=== PATIENT | male | born 1995 | race Caucasian/White ===

== ENCOUNTER 2025-01-29 09:59 | Emergency (ER) | payer OTHER ==
[2025-01-29 10:41] LABS: Absolute Lymphocytes (CBC) 1.1 K/uL (0.7-4.9); Hematocrit 45.0 % (39.6-49.0); Hemoglobin 15.6 g/dL (13.6-17.9); MCH 31.6 pg (27.0-35.0); MCHC 34.7 g/dL (32.0-36.0); MCV 91.1 fL (80-100); MPV 9.9 fL (7.6-11.3); Nucleated RBC Absolute Count 0.0 (0-0); Nucleated Red Blood Cells % 0.1 % (0-0); RBC Red Blood Cell Count 4.94 M/uL (4.33-5.43); White Blood Count 9.70 thou/uL (4.3-10.9)
[2025-01-29 10:51] LABS: PT Prothrombin Time 12.9 SECONDS (10-13.0); PTT, Activated Partial Thromb 31.1 SECONDS (27.2-37.4); Protime INR 1.15
--- NOTE | 2025-01-29 11:14 | RAD REPORT ---
EXAM: CT Soft Tissue Neck W/Contr INDICATION: [facility] no attempted hanging Bed Name: 3 TECHNIQUE: Helical CT examination of the neck with IV contrast. Not reported Sagittal and coronal ref ormations were generated. This exam was performed according to our departmental dose-optimization program, which includes automated exposure control, adjustment of the mA and/or kV according to patie nt size and/or use of iterative reconstruction technique. COMPARISON: None. FINDINGS: Mucosal spaces: Nasopharynx, oropharynx, oral cavity, larynx and hypopharynx are normal. No suspiciou s masses. Epiglottis is normal in configuration. True vocal cords cords are normally situated. Piriform sinuses are well-aerated. Lymph Nodes: No pathologic appearing cervical lymph nodes. Salivary Glands: Unremarkable. Thyroid Gland: Normal Included Intracranial Structures: Normal Included Orbits: Normal Paranasal Sinuses: Moderate mucosal thickening predominantly along the left maxillary and sphenoid s inuses. Tympanomastoid Cavities: Normal Vascular Structures: Normal Osseous Structures: No acute osseous abnormality. Included Lung Apices: Normal IMPRESSION: No acute abnormalities of the neck soft tissues. Up to moderate inflammatory paranasal sinus mucosal thickening.
--- NOTE | 2025-01-29 11:15 | RAD REPORT ---
EXAM: C Spine Wo Con HISTORY: attempted hanging COMPARISON: None TECHNIQUE: Multiple contiguous axial images were obtained in a CT of the cervical spine without IV co ntrast. Sagittal and coronal reformats were performed. One or more of the following dose reduction techniques were used: Automated exposure control, adjustment of the mA and kV according to patient si ze, and iterative reconstruction. Unless otherwise specified, incidental findings do not require dedicated imaging follow-up. FINDINGS: The vertebral bodies and intervertebral discs demonstrate normal height and alignment without fractur e or subluxation. No degenerative changes are present. No prevertebral soft tissue swelling is seen. The posterior facets are well aligned. Normal alignment of the skull base with the cervical spine is seen. The lung apices are unremarkable. The cervical soft tissues are unremarkable. IMPRESSION: No evidence of acute osseous abnormality of the cervical spine.
[2025-01-29 11:22] LABS: METHAMPHETAM NEGATIVE (NEGATIVE); THC Cannibis NEGATIVE (NEGATIVE)
--- NOTE | 2025-01-29 11:28 | EDPHYS ---
Physician Documentation [facility] Name: Rodolfo Hollingsworth Age: 29 yrs Sex: Male : 1995 Arrival Date: 01/29/2025 Time: 09:59 Bed 3 Private MD: ED Physician Jeana Proctor HPI: 01/29 10:30 This 29 yrs old Male presents to ER via EMS with complaints of Suicidal Ideation, sp3 attempted hanging. 10:30 29-year-old male with history of depression presents from local long term after attempted sp3 hanging using shoestrings on the top bunk. Patient was immediately caught and picked up by security specialist with minimal time and pressure on said makeshift shoestring noose. Patient states there has been a lot of pressure and "things going on" at the present which led him to wanting to via suicide. He denies any psychosis. Currently states he has a sore throat and neck pain but denies headache, chest pain, back pain or any other symptoms. ROS otherwise negative. Vital signs normal for EMS.. Historical: - Allergies: 10:22 No Known Allergies; kc6 - PMHx: 10:22 Depressive disorder; kc6 - PSHx: 10:22 None; kc6 - Immunization history:: Adult Immunizations up to date. - Infectious Disease History:: Denies. - Social history:: Smoking status: Patient denies any tobacco usage or history of. ROS: 10:31 Constitutional: Negative for fever, chills, and weight loss, Eyes: Negative for injury, sp3 pain, redness, and discharge, ENT: Negative for injury, pain, and discharge, Cardiovascular: Negative for chest pain, palpitations, and edema, Respiratory: Negative for shortness of breath, cough, wheezing, and pleuritic chest pain, Abdomen/GI: Negative for abdominal pain, nausea, vomiting, diarrhea, and constipation, Back: Negative for injury and pain, MS/Extremity: Negative for injury and deformity, Skin: Negative for injury, rash, and discoloration, Neuro: Negative for headache, weakness, numbness, tingling, and seizure, Allergy/Immunology: Negative for hives, rash, and allergies, Endocrine: Negative for neck swelling, polydipsia, polyuria, polyphagia, and marked weight changes, 10:31 All other systems are negative, Exam: 10:32 Constitutional: This is a well developed, well nourished patient who is awake, alert, sp3 and in no acute distress. Head/Face: Normocephalic, atraumatic. Eyes: Pupils equal round and reactive to light, extra-ocular motions intact. Lids and lashes normal. Conjunctiva and sclera are non-icteric and not injected. Cornea within normal limits. Periorbital areas with no swelling, redness, or edema. ENT: Nares patent. No nasal discharge, no septal abnormalities noted. External auditory canals are clear. Oropharynx with no redness, swelling, or masses, exudates, or evidence of obstruction, uvula midline. Mucous membranes moist. Chest/axilla: Normal chest wall appearance and motion. Nontender with no deformity. No lesions are appreciated. Cardiovascular: Regular rate and rhythm with a normal S1 and S2. No gallops, murmurs, or rubs. Normal PMI, no JVD. No pulse deficits. Respiratory: Lungs have equal breath sounds bilaterally, clear to auscultation and percussion. No rales, rhonchi or wheezes noted. No increased work of breathing, no retractions or nasal flaring. Abdomen/GI: Soft, non-tender, with normal bowel sounds. No distension or tympany. No guarding or rebound. No evidence of tenderness throughout. Back: No spinal tenderness. No costovertebral tenderness. Full range of motion. Skin: Warm, dry with normal turgor. Normal color with no rashes, no lesions, and no evidence of cellulitis. MS/ Extremity: Pulses equal, no cyanosis. Neurovascular intact. Full, normal range of motion. Neuro: Awake and alert, GCS 15, oriented to person, place, time, and situation. Cranial nerves II-XII grossly intact. Motor strength 5/5 in all extremities. Sensory grossly intact. Cerebellar exam normal. Normal gait. 10:32 Neck: Mild ligature eller noted bilateral neck. No significant swelling noted. Pulses normal. Patient is in a c-collar., 10:32 Psych: Patient sad and depressed in his affect. Suicide attempt noted. No psychosis. No homicidal ideation.. 10:54 ECG was reviewed by the Attending Physician. EKG demonstrates sinus tachycardia at 100 sp3 bpm with normal intervals, normal QRS, normal axis, nonspecific diffuse ST/changes without evidence of acute ischemia. Vital Signs: 10:18 BP 102 / 63; Pulse 103; Resp 18 S; Pulse Ox 100% on R/A; kc6 11:44 BP 110 / 65; Pulse 100; Resp 16 S; Pulse Ox 98% on R/A; kc6 12:30 BP 125 / 77; Pulse 109; Resp 18 S; Temp 97.9(TE); Pulse Ox 98% on R/A; kc6 MDM: 10:20 Medical Screening Exam initiated sp3 10:32 Data reviewed: vital signs, nurses notes, EMS record, lab test result(s), EKG, sp3 radiologic studies. ED course: 29-year-old male with suicide attempt via shoestring noose at local long term with minimal injury most likely. We will CT scan of the neck soft tissue as well as C-spine to assess for injury. Psych workup also pending including all labs and toxicology screen. Disposition pending workup and patient course. Differential diagnosis includes major depression, soft tissue injury to the neck, drug abuse, among others.. 11:26 ED course: Workup negative. Chemistry pending and we will follow-up prior to discharge. sp3 CT scan of the neck and C-spine negative. Patient will be discharged to psychiatric unit at present with medical team onsite.. 01/29 10:22 Order name: Acetaminophen; Complete Time: 11:54 01/29 10:22 Order name: Basic Metabolic Panel; Complete Time: 11:54 01/29 10:22 Order name: CBC with Diff; Complete Time: 11:20 01/29 10:22 Order name: ETOH Level; Complete Time: 11: 01/29 10:22 Order name: Hepatic Function; Complete Time: 11:54 3 01/29 10:22 Order name: PT-INR; Complete Time: 11:20 3 01/29 10:22 Order name: Ptt, Activated; Complete Time: 11:20 01/29 10:22 Order name: Salicylate; Complete Time: 11:25 sp01/29 10:22 Order name: Urine Drug Screen; Complete Time: 11:25 3 01/29 10:22 Order name: CT Soft Tissue Neck W/contr; Complete Time: 11:20 01/29 10:22 Order name: CT C Spine; Complete Time: 11:20 sp3 01/29 10:22 Order name: EKG - Nurse/Tech; Complete Time: 10:50 sp3 01/29 10:22 Order name: IV Saline Lock; Complete Time: 10:24 sp3 01/29 10:22 Order name: Labs collected and sent; Complete Time: 10:33 sp3 01/29 10:22 Order name: Suicide Precautions; Complete Time: 10:33 sp3 01/29 10:22 Order name: Suicide Screening ([place]); Complete Time: 10:33 sp3 Administered Medications: No medications were administered Disposition Summary: 01/29/25 11:27 Discharge Ordered Condition: Stable sp3 Diagnosis - Suicide attempt, neck strangulation, soft tissue injury to the neck, major sp3 depression Followup: sp3 - With: Private Physician - When: Upon discharge from the Emergency Department - Reason: Continuance of care Discharge Instructions: - Discharge Summary Sheet sp3 - Managing Depression, Adult sp3 Forms: - Medication Reconciliation Form sp3 - Antibiotic Education sp3 - Prescription Opioid Use sp3 - Patient Portal Instructions sp3 - Leadership Thank You Letter sp3 Signatures: Dispatcher [employer] EDMS Jeana Proctor MD MD sp3 Leeann Ellis RN RN kc6 Corrections: (The following items were deleted from the chart) 10:23 10:22 ACETAMINOPHEN+C.LAB.BRZ ordered. EDMS EDMS 10:23 10:22 BASIC METABOLIC PANEL+C.LAB.BRZ ordered. EDMS EDMS 10:23 10:22 CBC+H.LAB.BRZ ordered. EDMS EDMS 10:23 10:22 ETHANOL+C.LAB.BRZ ordered. EDMS EDMS 10:23 10:22 HEPATIC FUNCTION+C.LAB.BRZ ordered. EDMS EDMS 10:23 10:22 PROTIME (+INR)+COAG.LAB.BRZ ordered. EDMS EDMS 10:23 10:22 PTT, ACTIVATED+COAG.LAB.BRZ ordered. EDMS EDMS 10:23 10:22 SALICYLATE+C.LAB.BRZ ordered. EDMS EDMS 10:23 10:22 URINE DRUG SCREEN+UC.LAB.BRZ ordered. EDMS EDMS 10:23 10:23 Soft Tissue Neck W/Contr+CT.RAD.BRZ ordered. EDMS EDMS 10:23 10:23 C Spine Wo Con+CT.RAD.BRZ ordered. EDMS EDMS
--- NOTE | 2025-01-29 11:28 | ER ---
Nurse's Notes [facility] Name: Rodolfo Hollingsworth Age: 29 yrs Sex: Male : 1995 Arrival Date: 01/29/2025 Time: 09:59 Bed 3 Private MD: Diagnosis: Suicide attempt, neck strangulation, soft tissue injury to the neck, major depression Presentation: 01/29 10:18 Chief complaint: EMS states: they were toned out to the custodial for witnessed attempted kc6 suicide. patient was seen jumping off the 2nd bunk with shoe strings tied together, patient was caught by secuity. (-) LOC. Coronavirus screen: At this time, the client does not indicate any symptoms associated with coronavirus-19. Ebola Screen: No symptoms or risks identified at this time. Initial Sepsis Screen: Does the patient meet any 2 criteria? No. Patient's initial sepsis screen is negative. Does the patient have a suspected source of infection? No. Patient's initial sepsis screen is negative. Risk Assessment: Do you want to hurt yourself or someone else? Patient reports desire/thoughts of hurting themselves or someone else. Provider notified. Onset of symptoms was January 29, 2025. Care prior to arrival: Cervical collar in place. IV initiated. 18 GA, in the right antecubital area. 10:18 Method Of Arrival: EMS: [facility] 10:18 Acuity: MILLY 2 kc6 Historical: - Allergies: 10:22 No Known Allergies; kc6 - PMHx: 10:22 Depressive disorder; kc6 - PSHx: 10:22 None; kc6 - Immunization history:: Adult Immunizations up to date. - Infectious Disease History:: Denies. - Social history:: Smoking status: Patient denies any tobacco usage or history of. Screenin:[address] [facility] ED Fall Risk Assessment (Adult) History of falling in the last 3 months, kc6 including since admission No falls in past 3 months (0 pts) Confusion or Disorientation No (0 pts) Intoxicated or Sedated No (0 pts) Impaired Gait No (0 pts) Mobility Assist Device Used No (0 pt) Altered Elimination No (0 pt) Score/Fall Risk Level 0 - 2 = Low Risk Oriented to surroundings. Abuse screen: Denies threats or abuse. Denies injuries from another. Nutritional screening: No deficits noted. Tuberculosis screening: No symptoms or risk factors identified. Assessment: 10:18 Reassessment: pharmacist in charge informed for need of a sitter. none available at this time. kc6 patient placed in front of the nurses station with x3 security guards at bedside. 10:18 General: Appears in no apparent distress. comfortable, well groomed, well developed, kc6 Behavior is calm, cooperative, appropriate for age. Pain: Complains of pain in neck. Neuro: Level of Consciousness is awake, alert, obeys commands, Oriented to person, place, time, situation, Appropriate for age. Cardiovascular: Capillary refill < 3 seconds. Respiratory: Airway is patent Trachea midline Respiratory effort is even, unlabored, Respiratory pattern is regular, symmetrical. GI: No signs and/or symptoms were reported involving the gastrointestinal system. : No signs and/or symptoms were reported regarding the genitourinary system. EENT: No signs and/or symptoms were reported regarding the EENT system. Derm: Skin is intact, is healthy with good turgor, Skin is pink, warm \\T\\ dry. ligature eller noted to the neck. Musculoskeletal: No signs and/or symptoms reported regarding the musculoskeletal system. Circulation, motion, and sensation intact. Range of motion: intact in all extremities. 11:18 Reassessment: Patient appears in no apparent distress at this time. No changes from kc6 previously documented assessment. Patient and/or family updated on plan of care and expected duration. Pain level reassessed. Patient is alert, oriented x 3, equal unlabored respirations, skin warm/dry/pink. 12:20 Reassessment: Patient appears in no apparent distress at this time. No changes from kc6 previously documented assessment. Patient and/or family updated on plan of care and expected duration. Pain level reassessed. Patient is alert, oriented x 3, equal unlabored respirations, skin warm/dry/pink. 12:30 Reassessment: report given to Deidre at the [facility]. patient will be under kc6 Continuous Direct Observation 24hrs a day until cleared by psychiatry. Psych: 10:18 Arnold Suicide Severity Screening: In the past month, have you wished you were kc6 or wished you could go to sleep and not wake up? Patient responds "yes." Based off the client's responses additional C-SSRS screening is required. "In the past month, have you actually had any thoughts of killing yourself?" Patient responds "yes." Based off the client's response additional Arnold suicide severity screening questions to be further documented on paper forms. "In your lifetime, have you ever done anything, started to do anything, or prepared to do anything to end your life?" Patient responds "no.". Subjective: Patient's mood is sad, Delusions are denied, Hallucinations are denied Having thoughts of suicide. Plan for suicide is to hang himself from the second bunk of his bed with shoe laces. Objective: Patient is cooperative, using poor eye contact, Speech is normal, Affect is flat. Interventions: Removed personal items and placed in bag. Patient placed in hospital gown. Searched person for dangerous items. Urine collected and sent for urine drug test. Belonging list filled out. Safety Checks: Personal items have been removed. Door is open. No visitors are present at this time. Pt denies substance abuse. Commitment: Patient will be an involuntary commitment. Vital Signs: 10:18 BP 102 / 63; Pulse 103; Resp 18 S; Pulse Ox 100% on R/A; kc6 11:44 BP 110 / 65; Pulse 100; Resp 16 S; Pulse Ox 98% on R/A; kc6 12:30 BP 125 / 77; Pulse 109; Resp 18 S; Temp 97.9(TE); Pulse Ox 98% on R/A; kc6 ED Course: 10:18 Patient arrived in ED. kc6 10:18 Patient is placed in psych hold. kc6 10:20 Jeana Proctor MD is Attending Physician. sp3 10:22 Triage completed. kc6 10:22 Arm band placed on. kc6 10:22 Patient has correct armband on for positive identification. Placed in gown. Bed in low kc6 position. Side rails up X2. Security at bedside. Pulse ox on. NIBP on. Door closed. Noise minimized. Visitors limited. Lights dimmed. Moved to private room. Warm blanket given. Pillow given. Verbal reassurance given. 10:23 Maintain EMS IV. Dressing intact. Good blood return noted. Site clean \\T\\ dry. Gauge \\T\\ priti 6 site: 18G RAC. Flushed with 10 mL NS. Patient maintains SpO2 saturation greater than 95% on room air. 10:41 CT Soft Tissue Neck W/contr In Process Unspecified. EDMS 10:41 CT C Spine In Process Unspecified. EDMS 11:30 Removal of Cervical Collar. kc6 12:19 No provider procedures requiring assistance completed. IV discontinued, intact, kc6 bleeding controlled, No redness/swelling at site. Pressure dressing applied. Administered Medications: No medications were administered Medication: 12:20 VIS not applicable for this client. kc6 Outcome: 11:27 Discharge ordered by . sp3 12:36 Discharged to Law Enforcement kc6 12:36 Condition: good 12:36 Discharge instructions given to patient, [facility] Security Guards Instructed on discharge instructions, follow up and referral plans. safety practices, Demonstrated understanding of instructions, follow-up care, 12:42 Patient left the ED. kc6 Signatures: Dispatcher [employer] Jeana Kenny MD MD sp3 Leeann Ellis RN RN kc6 Corrections: (The following items were deleted from the chart) 10:34 10:18 Care prior to arrival: Cervical collar in place. IV initiated. 22 GA, in the kc6 right antecubital area, kc6 10:34 10:23 Maintain EMS IV. Dressing intact. Good blood return noted. Site clean \\T\\ dry. kc6 Gauge \\T\\ site: 22G RAC. Flushed with 10 mL NS kc6
[2025-01-29 11:38] LABS: ALT/SGPT 18 U/L (16-61); AST/SGOT 13 U/L (15-37); Albumin 4.0 g/dL (3.4-5.0); Albumin/Globulin Ratio 1.3 (1.1-1.8); Alkaline Phosphatase 70 U/L (45-117); Anion Gap 13.2 mEq/L (5.0-15.0); BUN Blood Urea Nitrogen 10 mg/dL (7-18); Globulin 3.2 g/dL (2.3-3.5); Glucose Level 109 mg/dL (74-106); Potassium 4.2 mEq/L (3.5-5.1)
[2025-01-29 11:45] LABS: Bilirubin Indirect, Calculated 0.3 mg/dL (0.2-0.8)
[2025-01-29 12:48] VITALS: O2SAT 98
[2025-01-29 12:50] VITALS: BP 125/77; TEMP 97.9
== END 2025-01-29 12:42 | disposition home or self-care (01) ==
LOC: ER 09:59
DX: T14.91XA Suicide attempt, initial encounter (principal); S19.80XA Other specified injuries of unspecified part of neck, initial encounter; X83.8XXA Intentional self-harm by other specified means, initial encounter; Y92.143 Cell of prison as the place of occurrence of the external cause; F32.9 Major depressive disorder, single episode, unspecified
CPT/HCPCS: 93005; 85025; 80048; 36415; 85610; 80076; 85730; 80307; 72125; 70491; 99285; 80143; 80179; 82077; Q9967